=== PATIENT | female | born 1955 | race Caucasian/White ===

== ENCOUNTER → 2019-12-17 11:47 | Outpatient (BNVA) | payer BC, SELFPAY | PROVIDERS: Family Provider Nurse Practitioner; PCP Nurse Practitioner Family; Visit Provider Nurse Practitioner Family | DX: E78.2 Mixed hyperlipidemia (principal); M10.9 Gout, unspecified; M54.9 Dorsalgia, unspecified; E55.9 Vitamin D deficiency, unspecified; I10 Essential (primary) hypertension; E11.9 Type 2 diabetes mellitus without complications | CPT/HCPCS: 80053; 80061; 81001; 81003; 82306; 83036; 84443; 84550; 85025 ==

== ENCOUNTER → 2019-12-18 09:31 | Outpatient (BNVA) | payer BC, SELFPAY | PROVIDERS: Family Provider Nurse Practitioner; PCP Nurse Practitioner Family; Visit Provider Nurse Practitioner Family | DX: M54.9 Dorsalgia, unspecified (principal) | CPT/HCPCS: 72114 ==

== ENCOUNTER → 2020-07-23 08:55 | Outpatient (BNVA) | payer SELFPAY | PROVIDERS: Family Provider Nurse Practitioner; PCP Nurse Practitioner Family; Visit Provider Nurse Practitioner Family | DX: E11.8 Type 2 diabetes mellitus with unspecified complications (principal) | CPT/HCPCS: 80053; 83036 ==

== ENCOUNTER 2020-09-22 06:00 | Outpatient (RCR) | payer BC, SELFPAY | END 2020-10-08 23:59 | disposition home or self-care (01) | LOC: WPT 06:00 | PROVIDERS: Family Provider Nurse Practitioner; PCP Nurse Practitioner Family; Referring Provider Orthopaedic Surgery; Visit Provider Orthopaedic Surgery | DX: M48.061 Spinal stenosis, lumbar region without neurogenic claudication (principal) | CPT/HCPCS: 97110; 97161 ==

== ENCOUNTER 2020-10-07 14:45 | Outpatient (CLI) | payer BC, SELFPAY ==
--- NOTE | 2020-10-07 15:15 | MR_ITS ---
WS: [id number] MRI LUMBAR SPINE NONCONTRAST HISTORY: M48.061 - Spinal stenosis, lumbar region without neurogenic claudication COMPARISON: None available. TECHNIQUE: Sagittal and axial multisequence imaging is submitted. Thoracolumbar scoliosis with increased lumbar lordosis. Mild cervical stenosis at C4-5. On the lumbar radiograph series performed on 12/18/2019 there are 5 nonrib-bearing lumbar vertebral bod ies. Conus terminates normally at L1-2 disc level. L1-L2: Diffuse annular disc bulging with moderate bilateral foraminal stenosis, LEFT greater than RIG HT. L2-L3: Mild annular disc bulge. Mild bilateral foraminal stenosis. L3-L4: Diffuse annular disc bulging with mild osteophytic ridging and facet arthritis. Moderate bilat eral foraminal stenosis. L4-L5: Marked annular disc bulging with ligamentum flavum hypertrophy and facet arthritis. Severe fac et joint arthritis. Moderate to severe central stenosis with severe bilateral foraminal stenosis and subarticular recess stenosis. Significant compression of the LEFT L5 nerve root. L5-S1: Asymmetric disc bulging and osteophytic ridging. Severe RIGHT foraminal stenosis with severe R IGHT facet joint arthritis. Moderate central and LEFT foraminal stenosis. There is a focal central di sc protrusion. MR/MR lumbar spine wo con* [id number] IMPRESSION: 1. 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 2. Moderate to severe central stenosis at L4-5 with severe bilateral foraminal stenosis and subarticular recess stenosis. Significant compression upon the LE FT L5 nerve root. 3. Moderate central LEFT foraminal stenosis at L5-S1 with severe RIGHT foramin al stenosis. 4. Moderate bilateral foraminal stenosis, LEFT greater than RIGHT at L1-2. 5. Moderate bilateral foraminal stenosis at L3-4.
== END 2020-10-07 14:46 | disposition home or self-care (01) ==
LOC: RADSHAW 14:47
PROVIDERS: PCP Nurse Practitioner Family; Visit Provider Orthopaedic Surgery
DX: M48.061 Spinal stenosis, lumbar region without neurogenic claudication (principal); M48.07 Spinal stenosis, lumbosacral region; M41.86 Other forms of scoliosis, lumbar region
CPT/HCPCS: 72148

== ENCOUNTER 2020-10-09 06:00 | Outpatient (RCR) | payer BC, SELFPAY | END 2020-11-07 23:59 | disposition home or self-care (01) | LOC: WPT 06:00 | PROVIDERS: PCP Nurse Practitioner Family; Referring Provider Orthopaedic Surgery; Visit Provider Orthopaedic Surgery | DX: M54.9 Dorsalgia, unspecified (principal) | CPT/HCPCS: 97110 ==

== ENCOUNTER → 2023-12-16 15:53 | Outpatient (BNVA) | payer MEDICARE, SELFPAY | PROVIDERS: PCP Nurse Practitioner Family; Visit Provider Nurse Practitioner Family | DX: M16.11 Unilateral primary osteoarthritis, right hip (principal); M25.551 Pain in right hip | CPT/HCPCS: 73502 ==